=== PATIENT | male | born 1950 | race Caucasian/White ===

== ENCOUNTER 2016-08-03 04:56 | Emergency (ER) | payer BC ==
[~2016-08-03] VITALS: Ht 175.3 cm; Wt 113.4 kg
[2016-08-03 05:00] VITALS: BP 121/86; PULSE 88; RESP 17; TEMP 97.9; O2SAT 97
--- NOTE | 2016-08-03 05:00 | NUR ---
Patient to ER bed 8 for evaluation. Side rails up. Report given to BERNARDINO Jones
--- NOTE | 2016-08-03 05:10 | NUR ---
Pt stated he has had a red rash on the L side that goes to the back. Pt states that he has had it for about a week and was at the [facility] clinic that they staed it was shingles. Will continue to monitor. No other injuries or complaints mentioned/noted. No distress noted.
[2016-08-03] MEDS ORDERED: LISI40TA4 PO (05:32)
--- NOTE | 2016-08-03 05:34 | NUR ---
ER Dr. Vasquez at bedside examining patient.
[2016-08-03 06:49] VITALS: BP 118/86; PULSE 88; RESP 17; TEMP 97.9; O2SAT 97
--- NOTE | 2016-08-03 06:49 | NUR ---
Patient given written and verbal discharge instructions and verbalizes understanding. ER MD discussed with patient the results and treatment provided. Patient in stable condition. ID arm band removed. Rx of Colace, zovirax, Ivy, and tylenol with codeine given. Patient educated on pain management and to follow up with PMD. Pain Scale 2/10. Opportunity for questions provided and answered.
== END 2016-08-03 06:49 | disposition home or self-care (01) ==
LOC: SED 04:56
DX: B02.9 Zoster without complications (principal); B02.29 Other postherpetic nervous system involvement; K59.00 Constipation, unspecified; R03.0 Elevated blood-pressure reading, without diagnosis of hypertension; Z88.1 Allergy status to other antibiotic agents
CPT/HCPCS: 74000-TC; 99283

== ENCOUNTER 2017-04-05 02:54 | Emergency (ER) | payer BC, OTHER ==
[~2017-04-05] VITALS: Ht 175.3 cm; Wt 113.4 kg
[~2017-04-05 02:54] MED LIST: LISI40TA4 PO
[2017-04-05 03:05] VITALS: BP_SYST 159
[2017-04-05] MEDS ORDERED: NACL 0.9% 1,000 ML IV ONE (03:32)
[2017-04-05] MEDS ORDERED: KETOROLAC TROMETHAMINE 30 MG VIAL IVP ONE (03:45)
[2017-04-05] MEDS ORDERED: ONDANSETRON HCL 4 MG/2 ML VIAL IVP ONE (03:45)
[2017-04-05 03:56] LABS: BASOPHILS # (AUTO) 0.3 K/uL (0.0-0.2); BASOPHILS % (AUTO) 2.1 % (0.0-2.0); EOSINOPHILS % (AUTO) 0.2 % (0.0-4.0); HEMATOCRIT 45.2 % (36-54); HEMOGLOBIN 14.9 g/dL (14.0-18.0); MEAN CORPUSCULAR HEMOGLOBIN 32 pg (27-31); MEAN CORPUSCULAR HGB CONC 33 % (32-36); MEAN CORPUSCULAR VOLUME 96 fL (79.0-98.0); MONOCYTES # (AUTO) 0.2 K/uL (0.0-1.0); MONOCYTES % (AUTO) 1.7 % (1.7-9.3); NEUTROPHILS # (AUTO) 10.5 K/uL (1.8-7.7); PLATELET COUNT (AUTO) 376 K/uL (130-430); RED BLOOD CELL COUNT(AUTO) 4.73 MIL/uL (4.2-6.2); RED CELL DISTRIBUTION WIDTH 13.9 % (9.0-15.0)
[2017-04-05 04:01] LABS: BILIRUBIN,URINE NEGATIVE (NEGATIVE); BLOOD, URINE 3+ (NEGATIVE); CLARITY/URINE CLEAR (CLEAR); COLOR,URINE YELLOW (YELLOW); GLUCOSE,URINE NEGATIVE (NEGATIVE); KETONES,URINE NEGATIVE (NEGATIVE); LEUKOCYTE ESTERASE ,URINE NEGATIVE (NEGATIVE); NITRITE, URINE NEGATIVE (NEGATIVE); PH,URINE 5.5 (5.0-8.0); PROTEIN URINE NEGATIVE (NEGATIVE); UROBILINOGEN,URINE 0.2 (0.2-1.0)
[2017-04-05 04:04] LABS: CALCIUM 9.8 mg/dL (8.4-11.0); CREATININE 1.47 mg/dL (0.55-1.30); POTASSIUM 4.8 mmol/L (3.5-5.1)
[2017-04-05 04:07] LABS: BACTERIA,URINE FEW /HPF (None Seen); RBC,URINE 20-50 /HPF (0-3); WBC,URINE 0-3 /HPF (0-3)
[2017-04-05 04:09] LABS: ALBUMIN 3.3 g/dL (3.4-4.8); TOTAL BILIRUBIN 0.4 mg/dL (0.0-1.0)
[2017-04-05 05:30] VITALS: BP_SYST 143
== END 2017-04-05 05:30 | disposition home or self-care (01) ==
LOC: SED 02:54
DX: N20.1 Calculus of ureter (principal); I10 Essential (primary) hypertension; M10.9 Gout, unspecified; Z87.442 Personal history of urinary calculi; Z88.1 Allergy status to other antibiotic agents
CPT/HCPCS: 36415; 74176; 80053; 81000; 85025; 96361; 96374; 96375; 99285; J1885; J2405; J7030

== ENCOUNTER 2022-04-09 07:25 | Emergency (ER) | payer BC, OTHER ==
[~2022-04-09] VITALS: Ht 172.7 cm; Wt 104.3 kg
[~2022-04-09 07:25] MED LIST changes: +LISI40TA13 PO; -LISI40TA4 PO
[2022-04-09 07:57] VITALS: BP_SYST 153
[2022-04-09 08:52] LABS: HEMATOCRIT 46.1 % (36-54); HEMOGLOBIN 15.5 g/dL (14.0-18.0); MEAN CORPUSCULAR HEMOGLOBIN 32 pg (27-31); MEAN CORPUSCULAR HGB CONC 34 % (32-36); MEAN CORPUSCULAR VOLUME 96 fL (79.0-98.0); RED BLOOD CELL COUNT(AUTO) 4.83 MIL/uL (4.2-6.2); RED CELL DISTRIBUTION WIDTH 14.7 % (9.0-15.0); WHITE BLOOD COUNT (AUTO) 6.5 K/uL (4.8-10.8)
[2022-04-09 08:53] LABS: BASOPHILS # (AUTO) 0.1 K/uL (0.0-0.2); BASOPHILS % (AUTO) 0.8 % (0.0-2.0); EOSINOPHILS # (AUTO) 0.2 K/uL (0.0-0.4); EOSINOPHILS % (AUTO) 2.7 % (0.0-4.0); LYMPHOCYTES # (AUTO) 1.1 K/uL (1.0-5.5); MONOCYTES # (AUTO) 0.7 K/uL (0.0-1.0); MONOCYTES % (AUTO) 10.6 % (1.7-9.3); NEUTROPHILS # (AUTO) 4.5 K/uL (1.8-7.7); NEUTROPHILS % (AUTO) 68.9 % (40.0-70.0); PLATELET COUNT (AUTO) 245 K/uL (130-430)
[2022-04-09 09:11] LABS: ANION GAP 8 (5-15); CALCIUM 9.1 mg/dL (8.4-11.0); CHLORIDE 105 mmol/L (98-107); CREATININE 1.47 mg/dL (0.55-1.30); GLUCOSE 112 mg/dL (70-99); UREA NITROGEN, BLOOD 22 mg/dL (8-21)
[2022-04-09 09:16] LABS: ALANINE AMINOTRANSFERASE 15 U/L (12-78); ALBUMIN 3.5 g/dL (3.4-4.8); ASPARTATE AMINOTRANSFERASE 18 U/L (10-37); TOTAL BILIRUBIN 0.6 mg/dL (0.0-1.0)
[2022-04-09 09:22] LABS: GFR AFRICAN AMERICAN 61 mL/min (>90)
[2022-04-09] MEDS ORDERED: PRED20TA PO (09:36)
[2022-04-09] MEDS ORDERED: ALBMDI INH (09:36)
--- NOTE | 2022-04-09 09:45 | NUR ---
Patient given written and verbal discharge instructions and verbalizes understanding. ER MD discussed with patient the results and treatment provided. Patient in stable condition. ID arm band removed. Rx of PREDNISONE AND ALBUTEROL given. Patient educated on pain management and to follow up with PMD. Pain Scale 0/10. Opportunity for questions provided and answered. Medication side effect fact sheet provided.
[2022-04-09 09:48] VITALS: BP_SYST 153
== END 2022-04-09 09:48 | disposition home or self-care (01) ==
LOC: SED 07:25
DX: J40 Bronchitis, not specified as acute or chronic (principal); R05.9 Cough, unspecified; Z88.1 Allergy status to other antibiotic agents; Z79.899 Other long term (current) drug therapy; Z20.822 Contact with and (suspected) exposure to COVID-19
CPT/HCPCS: 36415; 71045; 80053; 83605; 83880; 84484; 85025; 99284